=== PATIENT | female | born 1990 | race Caucasian/White ===

== ENCOUNTER 2017-11-07 21:15 | Emergency (ER) | payer MEDICAID ==
[~2017-11-07] VITALS: Ht 157.5 cm; Wt 110.9 kg
[~2017-11-07 21:15] MED LIST: DIVA500T4 PO; HYDR25CA PO; KEP500T PO
[2017-11-07 21:18] VITALS: BP 173/71
[2017-11-07] MEDS ORDERED: HYDROcodone/acetaminophen 10/325mg tab PO STA (21:20)
[2017-11-07] MEDS ORDERED: ibuprofen tablet 400 MG TABLET PO ONE (21:45)
[2017-11-07] MEDS ORDERED: ondansetron 4mg rapidly disintigrating tab PO ONE (21:45)
[2017-11-07] MEDS ORDERED: MELO-100 PO (21:52)
== END 2017-11-07 21:57 | disposition home or self-care (01) ==
LOC: ER 21:16
DX: M25.531 Pain in right wrist (principal); J45.909 Unspecified asthma, uncomplicated; G89.29 Other chronic pain; F12.90 Cannabis use, unspecified, uncomplicated; F15.90 Other stimulant use, unspecified, uncomplicated; Z88.0 Allergy status to penicillin; Z88.5 Allergy status to narcotic agent; Z91.040 Latex allergy status; Z91.018 Allergy to other foods; Z88.8 Allergy status to other drugs, medicaments and biological substances; Z79.899 Other long term (current) drug therapy; Z56.0 Unemployment, unspecified; V00.131A Fall from skateboard, initial encounter; Y93.51 Activity, roller skating (inline) and skateboarding; Y92.89 Other specified places as the place of occurrence of the external cause; Y99.8 Other external cause status
CPT/HCPCS: 73110; 73130; 99284

== ENCOUNTER 2018-03-16 21:20 | Emergency (ER) | payer MEDICAID ==
[~2018-03-16] VITALS: Ht 157.5 cm; Wt 118.0 kg
[~2018-03-16 21:20] MED LIST changes: +CEPH500C5 PO; +MELO-100 PO; +ONDA4TAB12 PO
[2018-03-16 21:23] VITALS: BP 133/57
--- NOTE | 2018-03-16 21:43 | NUR ---
PT TO XRAY
== END 2018-03-16 22:31 | disposition home or self-care (01) ==
LOC: ER 21:20
DX: S93.492A Sprain of other ligament of left ankle, initial encounter (principal); J45.909 Unspecified asthma, uncomplicated; F41.9 Anxiety disorder, unspecified; F20.9 Schizophrenia, unspecified; F12.10 Cannabis abuse, uncomplicated; F15.10 Other stimulant abuse, uncomplicated; Z90.710 Acquired absence of both cervix and uterus; Z91.013 Allergy to seafood; Z91.040 Latex allergy status; Z88.6 Allergy status to analgesic agent; Z79.899 Other long term (current) drug therapy; Z91.041 Radiographic dye allergy status; Z91.010 Allergy to peanuts; Z56.0 Unemployment, unspecified; Z88.0 Allergy status to penicillin; Z88.5 Allergy status to narcotic agent; W22.8XXA Striking against or struck by other objects, initial encounter; Y93.89 Activity, other specified; Y92.89 Other specified places as the place of occurrence of the external cause; Y99.8 Other external cause status
CPT/HCPCS: 73610; 99283

== ENCOUNTER 2018-08-19 21:00 | Emergency (ER) | payer MEDICAID ==
[~2018-08-19] VITALS: Ht 162.6 cm; Wt 126.4 kg
[2018-08-19] MEDS ORDERED: ondansetron/PF 4mg/2ml inj IV ONE (21:45)
[2018-08-19] MEDS ORDERED: ketorolac tromethamine 15mg/ml inj. IV ONE (21:45)
[2018-08-19] MEDS ORDERED: normal saline 1000ML IV soln IVB ONE (21:45)
[2018-08-19] MEDS ORDERED: morphine 4 MG/ML inj SYRINge IV PRN (21:45)
[2018-08-19 22:15] LABS: BASOPHILS # (AUTO) 0.1 X10'3 (0-0.2); BASOPHILS % (AUTO) 0.6 % (0-1); EOSINOPHILS # (AUTO) 0.5 X10'3 (0-0.9); EOSINOPHILS % (AUTO) 4.7 % (0-6); HEMATOCRIT 40.8 % (35.0-45.0); HEMOGLOBIN 13.7 g/dl (12.0-16.0); LYMPHOCYTES # (AUTO) 2.5 X10'3 (1.1-4.8); LYMPHOCYTES % (AUTO) 24.3 % (21-51); MEAN CORPUSCULAR HEMOGLOBIN 29.4 PG (27.0-31.0); MEAN CORPUSCULAR HGB CONC 33.6 g/dL (33.0-36.5); MEAN CORPUSCULAR VOLUME 87.4 FL (78-98); MONOCYTES # (AUTO) 0.6 X10'3 (0-0.9); MONOCYTES % (AUTO) 6.3 % (2-12); NEUTROPHILS # (AUTO) 6.5 X10'3 (1.8-7.7); NEUTROPHILS % (AUTO) 64.1 % (42-75); PLATELET COUNT 269 X10'3 (140-440); RED BLOOD COUNT 4.67 X10'6 (4.20-5.60); RED CELL DISTRIBUTION WIDTH 14.2 % (11.5-14.5); WHITE BLOOD COUNT 10.1 X10'3 (4.5-11.0)
[2018-08-19 22:33] LABS: ALANINE AMINOTRANSFERASE 168 U/L (12-78); ALBUMIN/GLOBULIN RATIO 0.6 (1.1-1.5); ALKALINE PHOSPHATASE 78 IU/L (46-116); ANION GAP 8 (8-16); ASPARTATE AMINO TRANSFERASE 96 U/L (10-37); BILIRUBIN,TOTAL 0.3 MG/DL (0.1-1.0); BLOOD UREA NITROGEN 14 MG/DL (7-18); BUN/CREATININE RATIO 10.9 (6.6-38.0); CALCIUM 8.9 MG/DL (8.5-10.1); CHLORIDE 106 MMOL/L (99-107); CREATININE 1.28 MG/DL (0.40-0.90); GLUCOSE 88 MG/DL (70-104); POTASSIUM 3.6 MMOL/L (3.5-5.1); SODIUM 138 MMOL/L (135-145); TOTAL CARBON DIOXIDE 23.9 MMOL/L (24-32); TOTAL PROTEIN 7.8 G/DL (6.4-8.2); eGFR 50 ML/MIN
[2018-08-19] MEDS ORDERED: acetaminophen 325mg tablet PO ONE (22:55)
[2018-08-19 23:05] LABS: CLARITY,URINE CLOUDY (Clear); COLOR,URINE YELLOW (Yellow); GLUCOSE, URINE NEGATIVE (Neg); KETONES,URINE NEGATIVE (Neg); LEUKOCYTE ESTERASE ,URINE LARGE (Neg); NITRITES, URINE NEGATIVE (Neg); OCCULT BLOOD,URINE LARGE (Neg); PROTEIN,URINE 100 mg/dl (Neg)
[2018-08-19 23:10] LABS: UA COLLECTION TYPE OTHER
[2018-08-19 23:11] LABS: BACTERIA,URINE FEW /HPF (Neg); SQUAMOUS EPITHELIAL CELL,UR FEW /LPF (FEW); WBC,URINE 50-100 /HPF (0-4)
[2018-08-19] MEDS ORDERED: LIDOCAINE 1% IV ONE (23:30)
[2018-08-19] MEDS ORDERED: DEXTROSE 5% IV ONE (23:30)
[2018-08-19] MEDS ORDERED: WATER IV ONE (23:30)
[2018-08-19] MEDS ORDERED: KETO10TA2 PO (23:32)
[2018-08-19] MEDS ORDERED: HYDR-4353 PO (23:32)
[2018-08-19] MEDS ORDERED: ONDA4TAB6 PO (23:32)
[2018-08-19] MEDS ORDERED: HYDROcodone/acetaminophen 10/325mg tab PO ONE (23:50)
[2018-08-20 01:34] VITALS: BP 105/65
--- NOTE | 2018-08-23 11:16 | NUR ---
PT CALLED AND NOTIFIED THAT SHE HAD A YEAST INFECTIONS IDENTIFIED IN HER URINE SAMPLE. DR PERES PRESCRIBED MACROBID 10 MG PO BID X 5 DAYS AND FLUCONOZOLE 150 MG OP X1. PT STATES THAT SHE IS ALREADY TAKING BACTRIM FOR UTI. DR PERES NOTIFIED AND CANCLED MACROBID ORDER. PT REQUESTED THAT RX BE CALLED INTO [facility] ON [address]. RX FOR FLUCONOZOLE 150MG, PO X1 CALLED IN REQUESTED
== END 2018-08-20 01:36 | disposition home or self-care (01) ==
LOC: ER 21:01
DX: T83.84XA Pain due to genitourinary prosthetic devices, implants and grafts, initial encounter (principal); R10.9 Unspecified abdominal pain; N20.0 Calculus of kidney; N39.0 Urinary tract infection, site not specified; Z87.442 Personal history of urinary calculi; J45.909 Unspecified asthma, uncomplicated; G89.29 Other chronic pain; F41.9 Anxiety disorder, unspecified; F31.9 Bipolar disorder, unspecified; F12.90 Cannabis use, unspecified, uncomplicated; F15.90 Other stimulant use, unspecified, uncomplicated; Z98.890 Other specified postprocedural states; Z90.710 Acquired absence of both cervix and uterus; Z91.018 Allergy to other foods; Z91.013 Allergy to seafood; Z91.010 Allergy to peanuts; Z88.0 Allergy status to penicillin; Z88.5 Allergy status to narcotic agent; Z91.041 Radiographic dye allergy status; Z88.8 Allergy status to other drugs, medicaments and biological substances; Z79.899 Other long term (current) drug therapy; Z56.0 Unemployment, unspecified; Y83.9 Surgical procedure, unspecified as the cause of abnormal reaction of the patient, or of later complication, without mention of misadventure at the time of the procedure; Y92.89 Other specified places as the place of occurrence of the external cause
CPT/HCPCS: 36415; 74176; 80053; 81001; 85025; 87088; 96374; 96375; 99284; J1885; J2405; J3490; J7030; J7060; J2001

== ENCOUNTER 2018-08-27 12:18 | Emergency (ER) | payer MEDICAID ==
[~2018-08-27] VITALS: Ht 162.6 cm; Wt 125.8 kg
[~2018-08-27 12:18] MED LIST changes: +HYDR-4353 PO; +KETO10TA2 PO; +ONDA4TAB6 PO
[2018-08-27] MEDS ORDERED: sulfamethoxazole/trimethoprim DS (800/160mg) tablet PO ONE (13:30)
[2018-08-27] MEDS ORDERED: SULF1TAB49 PO (14:15)
[2018-08-27 14:22] VITALS: BP 109/73
== END 2018-08-27 14:24 | disposition home or self-care (01) ==
LOC: ER 12:19
DX: L98.8 Other specified disorders of the skin and subcutaneous tissue (principal); J45.909 Unspecified asthma, uncomplicated; G89.29 Other chronic pain; F41.9 Anxiety disorder, unspecified; F31.9 Bipolar disorder, unspecified; F20.9 Schizophrenia, unspecified; F12.90 Cannabis use, unspecified, uncomplicated; F15.90 Other stimulant use, unspecified, uncomplicated; Z93.6 Other artificial openings of urinary tract status; Z86.69 Personal history of other diseases of the nervous system and sense organs; Z86.2 Personal history of diseases of the blood and blood-forming organs and certain disorders involving the immune mechanism; Z90.710 Acquired absence of both cervix and uterus; Z98.890 Other specified postprocedural states; Z56.0 Unemployment, unspecified; Z90.721 Acquired absence of ovaries, unilateral; Z88.8 Allergy status to other drugs, medicaments and biological substances; Z88.6 Allergy status to analgesic agent; Z91.041 Radiographic dye allergy status; Z91.040 Latex allergy status; Z88.0 Allergy status to penicillin; Z91.013 Allergy to seafood; Z91.010 Allergy to peanuts; Z88.5 Allergy status to narcotic agent; Z79.899 Other long term (current) drug therapy
CPT/HCPCS: 99283

== ENCOUNTER 2018-09-04 20:11 | Emergency (ER) | payer MEDICAID ==
[~2018-09-04] VITALS: Ht 162.6 cm; Wt 126.7 kg
[~2018-09-04 20:11] MED LIST changes: +SULF1TAB49 PO
[2018-09-04 20:24] VITALS: BP 127/87
--- NOTE | 2018-09-04 22:10 | NUR ---
New urostomy bag placed over R nephrostomy tube. Supplies given for bag change at home. Pt reports she is undergoing surgery for tube removal in the beginning of september.
== END 2018-09-04 22:45 | disposition home or self-care (01) ==
LOC: ER 20:13
DX: T83.038A Leakage of other urinary catheter, initial encounter (principal); J45.909 Unspecified asthma, uncomplicated; G89.29 Other chronic pain; F41.9 Anxiety disorder, unspecified; F31.9 Bipolar disorder, unspecified; F20.9 Schizophrenia, unspecified; F10.99 Alcohol use, unspecified with unspecified alcohol-induced disorder; F12.90 Cannabis use, unspecified, uncomplicated; F15.90 Other stimulant use, unspecified, uncomplicated; Z86.69 Personal history of other diseases of the nervous system and sense organs; Z86.2 Personal history of diseases of the blood and blood-forming organs and certain disorders involving the immune mechanism; Z90.721 Acquired absence of ovaries, unilateral; Z56.0 Unemployment, unspecified; Z98.890 Other specified postprocedural states; Z91.018 Allergy to other foods; Z88.6 Allergy status to analgesic agent; Z88.0 Allergy status to penicillin; Z88.8 Allergy status to other drugs, medicaments and biological substances; Z91.040 Latex allergy status; Z91.010 Allergy to peanuts; Z91.013 Allergy to seafood; Z88.5 Allergy status to narcotic agent; Z91.041 Radiographic dye allergy status; Z79.899 Other long term (current) drug therapy; Y84.6 Urinary catheterization as the cause of abnormal reaction of the patient, or of later complication, without mention of misadventure at the time of the procedure; Y92.89 Other specified places as the place of occurrence of the external cause; Y90.9 Presence of alcohol in blood, level not specified
CPT/HCPCS: 99284

== ENCOUNTER 2019-09-26 19:08 | Emergency (ER) | payer MEDICAID ==
[~2019-09-26] VITALS: Ht 160 cm; Wt 121.4 kg
[~2019-09-26 19:08] MED LIST changes: -CEPH500C5 PO; -HYDR-4353 PO; -SULF1TAB49 PO
[2019-09-26 19:34] VITALS: BP 146/108
[2019-09-26] MEDS ORDERED: HYDROcodone/acetaminophen 5mg/325mg tablet PO ONE (20:10)
[2019-09-26] MEDS: ibuprofen tablet 400 MG TABLET PO ONE (20:20)
== END 2019-09-26 20:37 | disposition home or self-care (01) ==
LOC: ER 19:08
DX: S83.8X1A Sprain of other specified parts of right knee, initial encounter (principal); J45.909 Unspecified asthma, uncomplicated; F41.9 Anxiety disorder, unspecified; F31.9 Bipolar disorder, unspecified; F20.9 Schizophrenia, unspecified; G89.29 Other chronic pain; F12.90 Cannabis use, unspecified, uncomplicated; F15.90 Other stimulant use, unspecified, uncomplicated; Z86.69 Personal history of other diseases of the nervous system and sense organs; Z90.710 Acquired absence of both cervix and uterus; Z98.890 Other specified postprocedural states; Z90.721 Acquired absence of ovaries, unilateral; Z56.0 Unemployment, unspecified; Z72.89 Other problems related to lifestyle; Z91.018 Allergy to other foods; Z91.041 Radiographic dye allergy status; Z88.0 Allergy status to penicillin; Z88.6 Allergy status to analgesic agent; Z91.013 Allergy to seafood; Z91.010 Allergy to peanuts; Z79.899 Other long term (current) drug therapy; X50.1XXA Overexertion from prolonged static or awkward postures, initial encounter; Y93.89 Activity, other specified; Y92.89 Other specified places as the place of occurrence of the external cause; Y99.8 Other external cause status
CPT/HCPCS: 73564; 73610; 99284

== ENCOUNTER 2020-02-06 23:04 | Emergency (ER) | payer MEDICAID ==
[~2020-02-06] VITALS: Ht 160 cm; Wt 136.4 kg
[2020-02-06] MEDS ORDERED: normal saline 1000ml 1,000 ML IV ONE (23:35)
[2020-02-06] MEDS ORDERED: proCHLORperazine 10 MG/2 ml inj IV ONE (23:35)
[2020-02-06] MEDS ORDERED: diphenhydrAMINE 50 mg/ml inj IV ONE (23:35)
[2020-02-06] MEDS ORDERED: ketorolac tromethamine 15mg/ml inj. IV ONE (23:35)
[2020-02-06] MEDS ORDERED: acetaminophen 325mg tablet PO ONE (23:35)
[2020-02-07 00:22] VITALS: BP 134/82
== END 2020-02-07 00:24 | disposition home or self-care (01) ==
LOC: ER 23:05
DX: R07.89 Other chest pain (principal); G43.909 Migraine, unspecified, not intractable, without status migrainosus; J45.909 Unspecified asthma, uncomplicated; G89.29 Other chronic pain; F41.9 Anxiety disorder, unspecified; F31.9 Bipolar disorder, unspecified; F12.90 Cannabis use, unspecified, uncomplicated; F15.90 Other stimulant use, unspecified, uncomplicated; Z90.710 Acquired absence of both cervix and uterus; Z98.890 Other specified postprocedural states; Z86.2 Personal history of diseases of the blood and blood-forming organs and certain disorders involving the immune mechanism; Z86.69 Personal history of other diseases of the nervous system and sense organs; Z72.89 Other problems related to lifestyle; Z56.0 Unemployment, unspecified; Z91.018 Allergy to other foods; Z88.6 Allergy status to analgesic agent; Z91.041 Radiographic dye allergy status; Z88.0 Allergy status to penicillin; Z91.040 Latex allergy status; Z91.010 Allergy to peanuts; Z91.013 Allergy to seafood; Z88.5 Allergy status to narcotic agent; Z79.899 Other long term (current) drug therapy
CPT/HCPCS: 93005; 96361; 96374; 96375; 99284; J0780; J1200; J1885; J7030

== ENCOUNTER 2020-04-21 21:10 | Emergency (ER) | payer MEDICAID ==
[~2020-04-21] VITALS: Ht 157.5 cm; Wt 138.0 kg
[2020-04-21] MEDS ORDERED: predniSONE 20 mg tablet PO ONE (21:25)
[2020-04-21] MEDS ORDERED: PRED20TA PO (21:28)
[2020-04-21 21:44] VITALS: BP 133/93
== END 2020-04-21 21:48 | disposition home or self-care (01) ==
LOC: ER 21:10
DX: J40 Bronchitis, not specified as acute or chronic (principal); J02.9 Acute pharyngitis, unspecified; B34.9 Viral infection, unspecified; G89.29 Other chronic pain; F41.9 Anxiety disorder, unspecified; F31.9 Bipolar disorder, unspecified; F20.9 Schizophrenia, unspecified; F12.90 Cannabis use, unspecified, uncomplicated; F15.90 Other stimulant use, unspecified, uncomplicated; Z86.69 Personal history of other diseases of the nervous system and sense organs; Z86.2 Personal history of diseases of the blood and blood-forming organs and certain disorders involving the immune mechanism; Z87.440 Personal history of urinary (tract) infections; Z90.710 Acquired absence of both cervix and uterus; Z98.890 Other specified postprocedural states; Z72.89 Other problems related to lifestyle; Z56.0 Unemployment, unspecified; Z88.0 Allergy status to penicillin; Z88.5 Allergy status to narcotic agent; Z88.8 Allergy status to other drugs, medicaments and biological substances; Z91.040 Latex allergy status; Z91.010 Allergy to peanuts; Z91.013 Allergy to seafood; Z91.018 Allergy to other foods; Z79.899 Other long term (current) drug therapy
CPT/HCPCS: 99283; J7512

== ENCOUNTER 2021-08-20 07:18 | Outpatient (CLI) | payer MEDICAID ==
[2021-08-20] VITALS (22 sets, daily range): BP systolic 97–164; BP diastolic 55–123
== END 2021-08-20 23:59 | disposition home or self-care (01) ==
LOC: CARD DIAG 07:18
PROVIDERS: ATTEND Nurse Practitioner Family
DX: I95.9 Hypotension, unspecified (principal); R42 Dizziness and giddiness
CPT/HCPCS: 93660

== ENCOUNTER 2023-10-21 16:01 | Emergency (ER) | payer MEDICAID ==
[~2023-10-21] VITALS: Ht 162.6 cm; Wt 129.3 kg
[~2023-10-21 16:01] MED LIST changes: +ONDA-243 PO; -ONDA4TAB12 PO
[2023-10-21 17:32] LABS: BASOPHILS # (AUTO) 0.1 X10'3 (0-0.2); BASOPHILS % (AUTO) 0.6 % (0-1); EOSINOPHILS # (AUTO) 0.8 X10'3 (0-0.9); EOSINOPHILS % (AUTO) 6.9 % (0-6); HEMATOCRIT 38.7 % (35.0-45.0); HEMOGLOBIN 12.6 g/dl (12.0-16.0); LYMPHOCYTES # (AUTO) 2.2 X10'3 (1.1-4.8); LYMPHOCYTES % (AUTO) 19.6 % (21-51); MEAN CORPUSCULAR HEMOGLOBIN 28.2 PG (27.0-31.0); MEAN CORPUSCULAR HGB CONC 32.6 g/dL (33.0-36.5); MEAN CORPUSCULAR VOLUME 86.4 FL (78-98); MEAN PLATELET VOLUME 7.1 FL (7.4-10.4); MONOCYTES # (AUTO) 0.5 X10'3 (0-0.9); MONOCYTES % (AUTO) 4.8 % (2-12); NEUTROPHILS # (AUTO) 7.6 X10'3 (1.8-7.7); NEUTROPHILS % (AUTO) 68.1 % (42-75); PLATELET COUNT 329 X10'3 (140-440); RED BLOOD COUNT 4.47 X10'6 (4.20-5.60); RED CELL DISTRIBUTION WIDTH 14.6 % (11.5-14.5); WHITE BLOOD COUNT 11.2 X10'3 (4.5-11.0)
[2023-10-21 17:36] VITALS: BP 136/89; PULSE 76; RESP 16; TEMP 98.9; O2SAT 97
[2023-10-21 17:44] LABS: ALANINE AMINOTRANSFERASE 15 U/L (12-78); ALBUMIN 3.2 G/DL (3.4-5.0); ALBUMIN/GLOBULIN RATIO 0.7 (1.1-1.5); ALKALINE PHOSPHATASE 80 IU/L (46-116); ANION GAP 10 (8-16); ASPARTATE AMINO TRANSFERASE 20 U/L (10-37); BILIRUBIN,TOTAL 0.4 MG/DL (0.1-1.0); BLOOD UREA NITROGEN 9 MG/DL (7-18); BUN/CREATININE RATIO 9.3 (10.0-20.0); CALCIUM 8.9 MG/DL (8.5-10.1); CHLORIDE 106 MMOL/L (99-107); CREATININE 0.97 MG/DL (0.40-0.90); GLUCOSE 87 MG/DL (70-104); POTASSIUM 3.6 MMOL/L (3.5-5.1); SODIUM 141 MMOL/L (135-145); TOTAL CARBON DIOXIDE 25.2 MMOL/L (24-32); TOTAL PROTEIN 7.5 G/DL (6.4-8.2); eCRCL 73 ML/MIN; eGFR 67 ML/MIN
[2023-10-21] MEDS ORDERED: CEPH-585 PO (18:09)
== END 2023-10-21 18:19 | disposition home or self-care (01) ==
LOC: ER 16:01
DX: L03.116 Cellulitis of left lower limb (principal); J45.909 Unspecified asthma, uncomplicated; D64.9 Anemia, unspecified; G89.29 Other chronic pain; M54.9 Dorsalgia, unspecified; F41.9 Anxiety disorder, unspecified; F31.9 Bipolar disorder, unspecified; F20.9 Schizophrenia, unspecified; Z91.041 Radiographic dye allergy status; Z91.040 Latex allergy status; Z91.010 Allergy to peanuts; Z88.0 Allergy status to penicillin; Z91.013 Allergy to seafood; Z88.8 Allergy status to other drugs, medicaments and biological substances; Z91.018 Allergy to other foods; Z79.899 Other long term (current) drug therapy; Z79.2 Long term (current) use of antibiotics; Z90.710 Acquired absence of both cervix and uterus; Z72.89 Other problems related to lifestyle; Z56.0 Unemployment, unspecified; Z98.890 Other specified postprocedural states
CPT/HCPCS: 36415; 80053; 85025; 99283

== ENCOUNTER 2024-05-09 21:55 | Emergency (ER) | payer MEDICAID ==
[~2024-05-09] VITALS: Ht 160 cm; Wt 130.4 kg
[2024-05-09 22:38] LABS: BASOPHILS # (AUTO) 0.1 X10'3 (0-0.2); BASOPHILS % (AUTO) 0.5 % (0-1); EOSINOPHILS # (AUTO) 0.2 X10'3 (0-0.9); EOSINOPHILS % (AUTO) 1.3 % (0-6); HEMATOCRIT 42.7 % (35.0-45.0); LYMPHOCYTES # (AUTO) 2.3 X10'3 (1.1-4.8); MEAN CORPUSCULAR HEMOGLOBIN 29.5 PG (27.0-31.0); MEAN CORPUSCULAR HGB CONC 32.8 g/dL (33.0-36.5); MEAN PLATELET VOLUME 7.2 FL (7.4-10.4); MONOCYTES # (AUTO) 0.6 X10'3 (0-0.9); MONOCYTES % (AUTO) 4.2 % (2-12); PLATELET COUNT 257 X10'3 (140-440); RED BLOOD COUNT 4.75 X10'6 (4.20-5.60); RED CELL DISTRIBUTION WIDTH 14.2 % (11.5-14.5); WHITE BLOOD COUNT 14.1 X10'3 (4.5-11.0)
[2024-05-09] MEDS: diphenhydrAMINE 50 mg/ml inj IM ONE (22:46)
[2024-05-09] MEDS: LORazepam 1 MG tablet PO ONE (22:47)
[2024-05-09] MEDS: ibuprofen tablet 400 MG TABLET PO ONE (22:47)
[2024-05-09] MEDS: nicotine 14mg patch - 24hr TD ONE (22:47)
[2024-05-09 22:51] LABS: BILIRUBIN,URINE NEGATIVE (Neg); CLARITY,URINE CLEAR (Clear); COLOR,URINE YELLOW (Yellow); GLUCOSE, URINE NEGATIVE (Neg); KETONES,URINE NEGATIVE (Neg); LEUKOCYTE ESTERASE ,URINE NEGATIVE (Neg); NITRITES, URINE NEGATIVE (Neg); OCCULT BLOOD,URINE MODERATE (Neg); PROTEIN,URINE NEGATIVE (Neg); UROBILINOGEN,URINE 0.2 E.U/dL (0.2-1.0)
[2024-05-09 22:52] LABS: URINE HCG NEGATIVE (NEG)
[2024-05-09 23:00] LABS: ALBUMIN 3.3 G/DL (3.4-5.0); BLOOD UREA NITROGEN 16 MG/DL (7-18); BUN/CREATININE RATIO 15.7 (10.0-20.0); CALCIUM 8.3 MG/DL (8.5-10.1); CREATININE 1.02 MG/DL (0.40-0.90); ETHANOL < 10 MG/DL (<10); GLUCOSE 97 MG/DL (70-104); POTASSIUM 3.8 MMOL/L (3.5-5.1); SALICYLATE 3.6 MG/DL (4.0-20.0); SODIUM 141 MMOL/L (135-145); THYROID STIMULATING HORMONE 2.68 ulU/ml (0.34-4.50); TOTAL CARBON DIOXIDE 28.1 MMOL/L (24-32); eCRCL 66 ML/MIN; eGFR 63 ML/MIN
[2024-05-09 23:01] LABS: ANION GAP 7 (8-16); CHLORIDE 106 MMOL/L (99-107)
[2024-05-09 23:02] LABS: ACETAMINOPHEN < 2.0 UG/ML (10-30)
[2024-05-09 23:04] LABS: URINE AMPHETAMINE SCREEN POSITIVE (Neg); URINE BARBITUATE SCREEN NEGATIVE (Neg); URINE BENZODIAZEPINES SCREEN NEGATIVE (Neg); URINE CANNABINOID SCREEN POSITIVE (Neg); URINE COCAINE SCREEN POSITIVE (Neg); URINE METHADONE SCREEN NEGATIVE (Neg); URINE OPIATE SCREEN NEGATIVE (Neg); URINE PHENCYCLIDINE SCREEN NEGATIVE (Neg)
[2024-05-09 23:19] LABS: BACTERIA,URINE 3+ /HPF (Neg); SQUAMOUS EPITHELIAL CELL,UR MANY /LPF (FEW); UA COLLECTION TYPE NON-SPECIFIED
[2024-05-09 23:20] LABS: RBC,URINE 0-2 /HPF (0-2); WBC,URINE 0-4 /HPF (0-4)
[2024-05-10] MEDS ORDERED: NO HOME MEDS (01:53)
[2024-05-10 10:44] VITALS: BP 131/87; PULSE 99; RESP 16; TEMP 98.1; O2SAT 96
== END 2024-05-10 10:49 | disposition home or self-care (01) ==
LOC: ER 21:56
DX: R45.851 Suicidal ideations (principal); F20.9 Schizophrenia, unspecified; F31.9 Bipolar disorder, unspecified; J45.909 Unspecified asthma, uncomplicated; Z88.0 Allergy status to penicillin; Z88.5 Allergy status to narcotic agent; Z88.8 Allergy status to other drugs, medicaments and biological substances; Z90.710 Acquired absence of both cervix and uterus; Z90.722 Acquired absence of ovaries, bilateral; Z91.041 Radiographic dye allergy status; Z20.822 Contact with and (suspected) exposure to COVID-19
CPT/HCPCS: 36415; 80048; 80305; 80320; 80329; 81001; 81025; 84443; 85025; 87811; 96372; 99285; J1200

== ENCOUNTER 2024-08-22 21:59 | Emergency (ER) | payer MEDICAID ==
[~2024-08-22] VITALS: Ht 157.5 cm; Wt 106.3 kg
[~2024-08-22 21:59] MED LIST changes: -DIVA500T4 PO; -HYDR25CA PO; -KEP500T PO; -KETO10TA2 PO; -MELO-100 PO; +NO HOME MEDS; -ONDA-243 PO; -ONDA4TAB6 PO
[2024-08-22 22:06] VITALS: BP 150/96; PULSE 99; RESP 15; O2SAT 97
[2024-08-22] MEDS: HYDROcodone/acetaminophen 10/325mg tab PO STA (22:35)
--- NOTE | 2024-08-22 22:53 | RADIOLOGY REPORT ---
CLINICAL INDICATION: LEFT FOOT AND TOE PAIN TECHNIQUE: DI FOOT, COMPLETE (3VW MIN) Comparison: None FINDINGS/IMPRESSION: : There is no evidence of acute fracture or dislocation. Soft tissues are unremarkable.
--- NOTE | 2024-08-22 23:15 | Physician Documentation ---
History of Present Illness ~ Chief Complaint: Foot pain Stated Complaint: DROPPED ROCK ON L FOOT Time Seen by MD: 22:39 Primary Medical Doctor: Charis Vides [facility] Patient is seen today with complaints of pain of the left great toe after she dropped a large rock on it earlier today. Patient denies any shortness of breath or chest pain and has no other concern or complaint at this time. Tetanus witin 5 years: Yes Medication Reconciliation Allergies: Coded Allergies: grapefruit (Verified Allergy, Severe, ANAPHYLAXIS, 08/22/24) chlorhexidine (Verified Allergy, Intermediate, RASH, 08/22/24) Iodinated Contrast Media (Verified Allergy, Mild, 08/22/24) iodine (Verified Allergy, Mild, 08/22/24) Penicillins (Unverified Allergy, Unknown, THROAT SWELLS, 08/22/24) >5 years, angioedema, treatment required, PEN-FAST 4 latex (Unverified Allergy, Unknown, SWELLS, 08/22/24) peanut (Verified Allergy, Unknown, 09/26/19) shellfish derived (Verified Allergy, Unknown, 09/26/19) morphine (Verified Adverse Reaction, Mild, hives, 09/26/19) Uncoded Allergies: VICODIN (Adverse Reaction, Unknown, makes me mean, 10/21/23) Miscellaneous Medications Home Med List (No Home Medications), (Reported) Past Medical History Past Medical History: Seizures, Asthma, Anemia, UTI, Chronic Back Pain, Anxiety, Bipolar, Schizophrenia Past Surgical History: hysterectomy, orthopedic surgeries, other Other Past Surgical History: Bilateral nephrouretal stents, lipoma, left oophorectomy Alcohol Use: Occasionally Drug Use: marijuana, methamphetamine Lives with: Family Lives In: Home Occupation: unemployed, disabled Review of Systems Constitutional: Denies: chills, fever, weakness Eyes: Denies: pain, blurred vision ENT: Denies: ear pain, nose pain, throat pain, mouth pain Respiratory: Denies: cough, shortness of breath Cardiovascular: Denies: chest pain, palpitations Gastrointestinal: Denies: abdominal pain, nausea, vomiting Genitourinary: Denies: burning, dysuria Female Genitalia: Denies: vaginal discharge, pelvic pain Neurological: Denies: headache, dizziness Musculoskeletal: Denies: pain, swelling Integumentary: Denies: rash, lesions Allergic/Immunologic: Denies: hives, itching Hematologic/Lymphatic: Denies: no symptoms reported Psychiatric: Denies: depression, anxiety Physical Exam Vital Signs: Temperature: 96.8, Source: Temporal, Heart Rate: 99, Respiratory Rate: 15, BP: 150/96, Pulse Oximetry: 97, Weight: 106.350 Physical Exam General: Awake and Alert, no acute distress. HEENT: Conjunctiva pink, Sclera clear, Mucus Membranes moist. Neck: Supple without masses and tenderness. Resp: Unlabored. Lungs clear to auscultation bilaterally. Heart: Regular Rate and rhythm, normal S1 and S2 without murmur, rub or gallop. Musculoskeletal: Patient on exam has swelling and ecchymosis of the dorsum of the left great toe and distal 1st metatarsal. Patient is neurovascularly intact distally. Motor function intact distally. Patient has significant tenderness to palpation in that area. Extremities: No cyanosis,clubbing or edema. Skin: Warm and Dry. Progress Results/Orders Results/Orders Medications Received in ER Medications (Trade) Dose Ordered Sig/Kristine Route PRN Reason Start Time Stop Time Status Last Admin Dose Admin ([place] 10/325mg tab) 1 tab ONCE STAT PO 08/22/24 22:09 08/22/24 22:11 DC 08/22/24 22:35 1 TAB Vital Signs 08/22/24 22:06 Temp 96.8 Pulse 99 Resp 15 B/P (MAP) 150/96 Pulse Ox 97 EKG/XRAY/CT/US/VASC/MRI Bone/Soft Tissue X-Ray (Ext.) : Additional Comment X-ray of left foot interpreted by myself today shows no sign of acute fracture, bones in anatomic alignment, no osteolytic or blastic lesions. DIAGNOSTIC RADIOLOGY Patient: ERASMO HENNESSY Medical Record: [id number] [facility] : 1990, Age: 34 Sex: Female Location: ER Patient Status: REG ER Service Date/Time: 08/22/242228 Ordering Physician: LANIE NASCIMENTO MD Exam: FOOT, COMPLETE (3VW MIN) CLINICAL INDICATION: LEFT FOOT AND TOE PAIN TECHNIQUE: DI FOOT, COMPLETE (3VW MIN) Comparison: None FINDINGS/IMPRESSION: : There is no evidence of acute fracture or dislocation. Soft tissues are unremarkable. Electronically Signed by:KEVIN HOLLINS MD Date & Time: 08/22/242249 Dictated by: KEVIN HOLLINS MD Dictation date and time: 08/22/242249 Primary Care Provider: NO PRIMARY CARE PROVIDER cc: LANIE NASCIMENTO MD ~ Medical Decision Making Findings Patient is seen today with complaints of pain of the left great toe after she dropped a large rock on it earlier today. Patient denies any shortness of breath or chest pain and has no other concern or complaint at this time. X-ray of left foot showed no sign of acute fracture, patient will continue ice off and on over the next few days every 20-30 minutes off and on. Patient will take Tylenol and ibuprofen as needed for symptomatic relief. Patient given prescription of Tylenol sent to patient's pharmacy [facility] on [address]. Patient will follow up with primary care in 2-5 days if no better as needed sooner. Patient will return for repeat x-ray in 7-14 days if no better as needed sooner. Return to ED with any worsening, concerning or changing symptoms. Departure Disposition: 01 HOME / SELF CARE / HOMELESS Impression: Primary Impression: Foot pain Qualified Codes: M79.672 - Pain in left foot Additional Impression: Contusion, foot Qualified Codes: S90.32XA - Contusion of left foot, initial encounter Condition: Improved Additional Instructions: X-ray of left foot showed no sign of acute fracture, patient will continue ice off and on over the next few days every 20-30 minutes off and on. Patient will take Tylenol and ibuprofen as needed for symptomatic relief. Patient given prescription of Tylenol sent to patient's pharmacy [facility] on [address]. Pat ient will follow up with primary care in 2-5 days if no better as needed sooner. Patient will return for repeat x-ray in 7-14 days if no better as needed sooner. Return to ED with any worsening, concerning or changing symptoms. Referrals: NO PRIMARY CARE PROVIDER (PCP) Prescriptions Acetaminophen (Tylenol Extra Strength) 500 Mg Tablet 2 TAB PO Q6H PRN PRN for pain or fever for 7 Days, #56 TAB Prov: CLEMENTINE LLANOS 08/22/24 Signature Scribe Signature: No scribe Attestation: No scribe CLEMENTINE LLANOS PAC Aug 22, 2024 23:15
[2024-08-22] MEDS ORDERED: ACET-1025 PO (23:20)
[2024-08-22 23:28] VITALS: TEMP 96.8
== END 2024-08-22 23:29 | disposition home or self-care (01) ==
LOC: ER 21:59
DX: S90.32XA Contusion of left foot, initial encounter (principal); F20.9 Schizophrenia, unspecified; F31.9 Bipolar disorder, unspecified; J45.909 Unspecified asthma, uncomplicated; F12.90 Cannabis use, unspecified, uncomplicated; F15.90 Other stimulant use, unspecified, uncomplicated; Z88.0 Allergy status to penicillin; Z88.5 Allergy status to narcotic agent; Z88.8 Allergy status to other drugs, medicaments and biological substances; Z90.710 Acquired absence of both cervix and uterus; Z90.722 Acquired absence of ovaries, bilateral; Z91.041 Radiographic dye allergy status; W20.8XXA Other cause of strike by thrown, projected or falling object, initial encounter; Y93.89 Activity, other specified; Y92.89 Other specified places as the place of occurrence of the external cause; Y99.8 Other external cause status
CPT/HCPCS: 73630; 99283